=== PATIENT | female | born 1990 | race Two or more races ===

== ENCOUNTER 2020-10-10 08:29 | Day surgery (SDC) | payer OTHER | END 2020-10-10 19:10 | disposition home or self-care (01) | LOC: CIR.AMB 08:29 | PROVIDERS: ATTEND Obstetrics & Gynecology | DX: N84.0 Polyp of corpus uteri (principal); Z20.828 Contact with and (suspected) exposure to other viral communicable diseases ==

== ENCOUNTER 2021-11-13 07:36 | Inpatient (IN) | payer OTHER ==
[~2021-11-13] VITALS: Ht 165.1 cm; Wt 75.3 kg
[2021-11-13] MEDS ORDERED: PRENATAL TABLE1 EAC1 PO (08:12)
[2021-11-13] MEDS ORDERED: PEPCID AC20 MG PO (08:13)
[2021-11-13] MEDS ORDERED: ZOFRAN8 MG PO (08:13)
[2021-11-13] MEDS ORDERED: SUCRALFATE1 GM/10 ML (14:54)
== END 2021-11-15 14:11 | disposition home or self-care (01) | DRG 807 ==
LOC: LDR 07:36 → SURG-SUITE 07:36
PROVIDERS: ADMIT Obstetrics & Gynecology; ATTEND Obstetrics & Gynecology
PROC: 10E0XZZ Delivery of Products of Conception, External Approach (ICD-10-PCS; principal; 2021-11-13)
PROC: 0KQM0ZZ Repair Perineum Muscle, Open Approach (ICD-10-PCS; 2021-11-13)
PROC: 4A1HXCZ Monitoring of Products of Conception, Cardiac Rate, External Approach (ICD-10-PCS; 2021-11-13)
DX: O70.1 Second degree perineal laceration during delivery (principal); Z37.0 Single live birth; Z3A.38 38 weeks gestation of pregnancy; Z20.822 Contact with and (suspected) exposure to COVID-19